=== PATIENT | female | born 1955 | race Hispanic/Latino ===

== ENCOUNTER → 2017-07-23 | Emergency (ER) | payer BC ==
[~2017-07-23] VITALS: Ht 162.6 cm; Wt 85.7 kg
[~2017-07-23] MED LIST: AMLODIPINE BESYL5 MG PO; ASPIR-LOW81 MG PO; LEVOTHYROXINE112 MCG PO; LISINOPRIL-HCT1 EAC1 PO; LOVASTATIN20 MG PO; METFORMIN HCL1000 MG PO; METOPROLOL TART50 MG PO; NORCO 5-325 TA1 EACH PO; ONDANSETRON ODT8 MG PO; VITAMIN D50000 UNI1 PO
--- NOTE | 2017-07-24 20:30 | EKG ---
[facility] [address] [facility] [facility] [place], [place] [address] Signed Normal sinus rhythm Normal ECG No previous ECGs available Confirmed by NICKOLAS MADISON MD ([id number] on 07/24/2017 8:30:13 PM Electronically Signed By: NICKOLAS MADISON MD 07/24/17 2030 PATIENT NAME: DANIELS SHERWOODLUCAS GALLEGOS Electrocardiogram DATE OF : 51 PHYSICIAN: NICKOLAS MADISON MD REPORT #: [id number] REPORT IS CONFIDENTIAL AND NOT TO BE RELEASED WITHOUT AUTHORIZATION
== END ==
LOC: ED 18:02
DX: R42 Dizziness and giddiness (principal); I10 Essential (primary) hypertension; E03.9 Hypothyroidism, unspecified; E11.9 Type 2 diabetes mellitus without complications; Z88.0 Allergy status to penicillin; Z79.84 Long term (current) use of oral hypoglycemic drugs; Z79.899 Other long term (current) drug therapy
CPT/HCPCS: 80053; 81001; 84484; 85025; 93005; 93010; 96361; 96374; 99284; J2405; J7030

== ENCOUNTER 2017-10-19 12:09 | Emergency (ER) | payer BC ==
[~2017-10-19] VITALS: Ht 149.9 cm; Wt 84.8 kg
[~2017-10-19 12:09] MED LIST changes: -ASPIR-LOW81 MG PO; -NORCO 5-325 TA1 EACH PO; -ONDANSETRON ODT8 MG PO
[2017-10-19] MEDS ORDERED: ASPIR-LOW81 MG PO (12:28)
[2017-10-19] MEDS ORDERED: NORCO 5-325 TA1 EACH PO (12:58)
[2017-10-19] MEDS ORDERED: ONDANSETRON ODT8 MG PO (13:10)
== END 2017-10-19 13:25 | disposition home or self-care (01) ==
LOC: ED 12:09
PROC: 0W3Q7ZZ Control Bleeding in Respiratory Tract, Via Natural or Artificial Opening (ICD-10-PCS; principal; 2017-10-19)
DX: R04.0 Epistaxis (principal); I10 Essential (primary) hypertension; E03.9 Hypothyroidism, unspecified; E11.9 Type 2 diabetes mellitus without complications; Z88.0 Allergy status to penicillin; Z79.899 Other long term (current) drug therapy; Z79.82 Long term (current) use of aspirin
CPT/HCPCS: 30903; 99283

== ENCOUNTER 2017-10-21 12:24 | Emergency (ER) | payer BC ==
[~2017-10-21] VITALS: Ht 149.9 cm; Wt 84.8 kg
[~2017-10-21 12:24] MED LIST changes: +ASPIR-LOW81 MG PO; +NORCO 5-325 TA1 EACH PO; +ONDANSETRON ODT8 MG PO
== END 2017-10-21 13:25 | disposition home or self-care (01) ==
LOC: ED 12:24
DX: Z48.00 Encounter for change or removal of nonsurgical wound dressing (principal); I10 Essential (primary) hypertension; E03.9 Hypothyroidism, unspecified; E11.9 Type 2 diabetes mellitus without complications; Z88.0 Allergy status to penicillin; Z79.82 Long term (current) use of aspirin; Z79.84 Long term (current) use of oral hypoglycemic drugs; Z79.899 Other long term (current) drug therapy
CPT/HCPCS: 99282